=== PATIENT | female | born 1990 | race Two or more races ===

== ENCOUNTER 2023-02-26 21:17 | Emergency (ER) | payer OTHER ==
[~2023-02-26] VITALS: Ht 157.5 cm; Wt 86.2 kg
[2023-02-26] MEDS ORDERED: GLIPIZIDE XL2.5 MG PO (21:26)
[2023-02-26] MEDS ORDERED: GLUMETZA500 MG (21:26)
[2023-02-27] MEDS ORDERED: CIPRO500 MG PO (01:48)
[2023-02-27] MEDS ORDERED: LEVSIN/SL0.125 MG SL (01:48)
[2023-02-27] MEDS ORDERED: INTESTINEX680 M1 PO (01:48)
[2023-02-27] MEDS ORDERED: MIRALAX510 GM PO (01:48)
== END 2023-02-27 02:01 ==
LOC: ER 21:17
DX: R10.9 Unspecified abdominal pain (principal)